=== PATIENT | male | born 1995 | race Two or more races ===

== ENCOUNTER 2021-10-09 20:39 | Emergency (ER) | payer MEDICAID, SELFPAY ==
--- NOTE | ~2021-10-09 | XR_ITS ---
EXAMINATION: XR ANKLE, RIGHT XR FOOT, RIGHT CLINICAL INFORMATION: Pain COMPARISON: Radiograph dated 09/25/2020 TECHNIQUE: AP, lateral, and mortise views of the right ankle and AP, lateral, and oblique views of the right foot. FINDINGS: RIGHT ANKLE: No fracture. Alignment is anatomic. Ankle mortise is symmetric. Joint spaces are maintained. No ankle joint effusion. Soft tissues are normal. Small bone island in the distal tibia. RIGHT FOOT: The bones and soft tissues are normal. Previously seen fracture at the great toe proximal phalanx has healed. No fracture. Alignment is anatomic. No erosions. Joint spaces are maintained. XR/XR foot RT min 3V IMPRESSION: Normal radiographs of the right ankle and foot. No acute osseous findings.
--- NOTE | ~2021-10-09 | XR_ITS ---
EXAMINATION: XR ANKLE, RIGHT XR FOOT, RIGHT CLINICAL INFORMATION: Pain COMPARISON: Radiograph dated 09/25/2020 TECHNIQUE: AP, lateral, and mortise views of the right ankle and AP, lateral, and oblique views of the right foot. FINDINGS: RIGHT ANKLE: No fracture. Alignment is anatomic. Ankle mortise is symmetric. Joint spaces are maintained. No ankle joint effusion. Soft tissues are normal. Small bone island in the distal tibia. RIGHT FOOT: The bones and soft tissues are normal. Previously seen fracture at the great toe proximal phalanx has healed. No fracture. Alignment is anatomic. No erosions. Joint spaces are maintained. XR/XR ankle RT 2V IMPRESSION: Normal radiographs of the right ankle and foot. No acute osseous findings.
[2021-10-09 21:14] VITALS: BP 124/75; PULSE 84; RESP 18; TEMP 37.1; O2SAT 100; BMI 26.6
--- NOTE | 2021-10-09 22:58 | ED.LOWEXIN ---
HPI - Extremity Injury (Lower) General Chief Complaint: Extremity Injury, Lower Stated Complaint: right foot swollen Time Seen by Provider: 10/09/21 22:52 Source: patient Mode of arrival: ambulatory Limitations: no limitations History of Present Illness HPI Narrative: 26-year-old male here with an inversion injury to the right ankle and foot which occurred yesterday. Patient now has pain and swelling to the ankle and foot which is worsened with weight-bearing. No numbness, tingling, weakness of the extremity Related Data Previous Rx's Medication Instructions Recorded acetaminophen 325 mg capsule 650 mg PO Q4H PRN #30 cap 10/09/21 (Tylenol) ibuprofen 600 mg tablet 600 mg PO TID PRN #20 tab 10/09/21 Allergies Allergy/AdvReac Type Severity Reaction Status Date / Time amphetamine [From Adderall] AdvReac Involuntary Verified 10/09/21 21:14 Spasms dextroamphetamine AdvReac Involuntary Verified 10/09/21 21:14 [From Adderall] Spasms ziprasidone [From Geodon] AdvReac Involuntary Verified 10/09/21 21:14 Spasms Review of Systems Review of Systems: Yes all other systems are reviewed and are negative Constitutional: Constitutional: Reports no additional constitutional complaints, Denies body ache(s), Denies chills, Denies fever(s), Denies headache(s) and Denies weakness Eyes: Eyes: Reports no additional eye complaints and Denies change in vision ENT: Reports system reviewed and no additional complaints, except as documented, Denies dizziness, Denies headache(s), Denies nasal congestion, Denies nasal discharge and Denies neck pain Cardiovascular: Cardiovascular: Reports no additional cardiovascular complaints, Denies chest pain, Denies leg edema and Denies dyspnea Respiratory: Respiratory: Reports no additional respiratory complaints, Denies cough and Denies dyspnea Gastrointestinal: Gastrointestinal: Reports no additional gastrointestinal complaints, Denies abdominal pain, Denies diarrhea, Denies nausea and Denies vomiting Genitourinary: Genitourinary: Denies urinary incontinence Musculoskeletal: Musculoskeletal: Reports no additional musculoskeletal complaints, Denies back pain, Reports arthralgias, Reports joint swelling, Denies neck pain, Denies numbness and Denies tingling Integumentary/Breasts: Skin/Breast: Reports system reviewed and no additional complaints, except as docu and Denies rash Neurologic: Reports system reviewed and no additional complaints, except as documented, Denies Abnormal speech present, Denies dizziness, Denies headache(s), Denies numbness, Denies tingling and Denies weakness PMFSH Past Medical History Attestation statement: The following information was validated with the patient. Source: old records reviewed and nursing notes reviewed Social History Social History Advance Directives: No Physical Exam Vital Signs: Vital Signs: Last Vital Signs Temp 98.1 F 10/09/21 23:32 Pulse 85 10/09/21 23:32 Resp 16 10/09/21 23:32 BP 115/64 10/09/21 23:32 Pulse Ox 99 10/09/21 23:32 BMI result Body Mass Index 26.6 Const: General: cooperative, healthy appearing, comfortable and no acute distress Orientation/consciousness: patient oriented x3 Limitations: no limitations HEENT: Head: Yes normal to inspection Ears: hearing grossly normal bilaterally General nose exam: Normal external nose present Face and sinus: Yes normal facial exam Mouth: Normal oral and palatal mucosa present Throat: Yes posterior oropharynx normal Eyes: General: appearance normal, both eyes and all related structures Pupils: Equal, round and reactive pupils present Neck: Neck: Yes normal visual inspection Chest: Chest palpation & inspection: normal inspection of the chest Resp: Effort & Inspection: normal respiratory effort Auscultation: clear to auscultation bilaterally Cardio: Rate: regular rate Rhythm: regular rhythm Peripheral pulses: Peripheral pulses 2+ throughout GI: Inspection: Yes normal to inspection Palpation (GI): Soft to palpation and nontender Auscultation: normal bowel sounds Back/Spine/Pelvis: Thoracic/Lumbar Spine: thoracic and lumbar spine normal to inspection Skin: General skin exam: no rashes or lesions noted Neuro: General: patient oriented x3, no focal motor deficits and normal sensation to monofilament Cranial nerves: Yes Equal, round and reactive pupils present Cognition (Neuro): normal cognition Speech: No Abnormal speech present Gait exam (Neuro): Normal gait present Motor exam (neuro): 5/5 motor strength present throughout Extrem: Other: Pain and swelling to the lateral right ankle and aspect of the foot. Palpable DP and PT pulses. Full range of motion. No ligamental laxity General: Yes normal to inspection Course Course Course Narrative: Inversion injury to the right ankle and foot which occurred yesterday. X-ray show no bony abnormality. Likely sprain. Patient will be placed in air cast and given crutches for home. Reviewed rice. Reviewed worrisome signs and symptoms of when to return to the emergency department. Comfortable discharge home. MDM - Extremity Injury (Lower) Medical Records Attestation: I reviewed the patient's medical records. Lab Data Attestation: I reviewed the patient's lab results. Imaging Data ankle/foot xray right: Attestation: I personally reviewed and interpreted this imaging study as follows: Radiologist's impression: [address] [address] XRay Report Signed Patient: Richmond Anand MR#: [id number] : 1995 Acct:[id number] Age/Sex: 26 / M ADM Date: 10/09/21 Loc: .ED Attending Dr: Ordering Physician: Generic ED Physician Date of Service: 10/09/21 Procedure(s): XR foot RT min 3V Accession Number(s): [id number] cc: Generic ED Physician~ EXAMINATION: XR ANKLE, RIGHT XR FOOT, RIGHT CLINICAL INFORMATION: Pain? COMPARISON: Radiograph dated 09/25/2020? TECHNIQUE: AP, lateral, and mortise views of the right ankle and AP, lateral, and oblique views of the right foot. FINDINGS: RIGHT ANKLE:? No fracture. Alignment is anatomic. Ankle mortise is symmetric. Joint spaces are maintained. No ankle joint effusion. Soft tissues are normal. Small bone island in the distal tibia. RIGHT FOOT: The bones and soft tissues are normal. Previously seen fracture at the great toe proximal phalanx has healed. No fracture. Alignment is anatomic. No erosions. Joint spaces are maintained.? XR/XR foot RT min 3V IMPRESSION: Normal radiographs of the right ankle and foot. No acute osseous findings. Procedures Procedure Narrative Procedure Narrative: airsplint, crutches Discharge Plan Discharge Clinical Impression: Ankle sprain and strain Patient Disposition: Home, Self-Care Instructions: Ankle Sprain (DC) Additional Instructions: Rest, ice, elevation Use crutches and nonweightbearing until able to bear weight without experiencing pain Motrin or Tylenol for pain as needed Prescriptions: New ibuprofen 600 mg tablet 600 mg PO TID PRN (Reason: pain) Qty: 20 0RF acetaminophen [Tylenol] 325 mg capsule 650 mg PO Q4H PRN (Reason: pain) Qty: 30 0RF Referrals: Physician,Unknown J [Physician] - 1 week (PCP for persistent symptoms)
[2021-10-09 23:32] VITALS: BP 115/64; PULSE 85; RESP 16; TEMP 36.7; O2SAT 99
[2021-10-10] MEDS: Acetaminophen 325 MG TABLET 975 MG PO (00:02)
== END 2021-10-10 00:08 | disposition home or self-care (01) ==
LOC: HO.ED 23:00
PROVIDERS: Emergency Provider Emergency Medicine
DX: S93.401A Sprain of unspecified ligament of right ankle, initial encounter (principal); S96.911A Strain of unspecified muscle and tendon at ankle and foot level, right foot, initial encounter; X50.1XXA Overexertion from prolonged static or awkward postures, initial encounter; Y93.9 Activity, unspecified; Y92.9 Unspecified place or not applicable; Y99.9 Unspecified external cause status
CPT/HCPCS: 73600; 73630; 99283